=== PATIENT | female | born 1965 | race Caucasian/White ===

== ENCOUNTER 2023-04-01 17:21 | Emergency (ER) | payer OTHER, SELFPAY ==
--- NOTE | ~2023-04-01 | CT_ITS ---
EXAMINATION: CT brain wo con DATE: 04/01/2023 18:35 INDICATION: fall . TECHNIQUE: Computed tomography (CT) of the head was performed without intravenous contrast. The mA wa s adjusted according to patient size. Iterative reconstruction technique was employed. The dose-lengt h product was 605.33 mGy-cm. COMPARISON: None. FINDINGS: No acute intracranial hemorrhage or extra-axial fluid collection. No hydrocephalus, mass, or herniation. No acute ischemic infarct. Unremarkable dural venous sinus attenuation. No acute osseous abnormality. The aerated spaces are clear. IMPRESSION: No acute intracranial process. Reviewed, dictated and finalized at location K.
--- NOTE | ~2023-04-01 | XR_ITS ---
EXAM: XR shoulder LT min 2V DATE: 04/01/2023 18:30 HISTORY: pain, fall today landing on arm . COMPARISON: None available. FINDINGS: Normal mineralization. No fracture or dislocation. No lytic or blastic lesion. Joint space s are maintained. No erosion or periosteal change. Soft tissues within normal limits. IMPRESSION: No acute osseous finding in the left shoulder. Reviewed, dictated and finalized at location K.
[2023-04-01 17:27] VITALS: BP 162/74; PULSE 88; RESP 19; TEMP 36.8; O2SAT 100
--- NOTE | 2023-04-01 18:22 | ED.HEATRA ---
HPI - Head Injury General Chief complaint: Head Injury Stated complaint: head injury Time Seen by Provider: 04/01/23 17:47 History of Present Illness HPI Narrative: 57-year-old female reports for evaluation for head injury that occurred today. Patient states she was stepping onto her deck, lost her balance and fell, landing on her left side and hitting her head on the deck. She reports a laceration to her head, no LOC. She reported a headache earlier that has subsided after taking Tylenol. She denies neck pain, back pain that is unchanged from her baseline. She does report left shoulder pain that is worse with internal rotation. Patient remembers following and thinks she may have tripped on her dog but is unsure. She denies chest pain, dizziness, lightheadedness, shortness of breath, vision changes, focal numbness or weakness prior to fall. Denies vision changes, focal numbness or weakness after fall. States her last tetanus vaccine was 2 years ago. Related Data Allergies Allergy/AdvReac Type Severity Reaction Status Date / Time No Known Allergies Allergy Verified 04/01/23 17:44 Review of Systems Review of Systems: CONSTITUTIONAL: Denies fever, chills EYES: Denies visual changes, redness, or discharge. ENT: Denies rhinorrhea, congestion, sore throat, or otalgia. CARDIOVASCULAR: Denies chest pain, palpitations, or edema. RESPIRATORY: Denies cough or dyspnea. GASTROINTESTINAL: Denies abdominal pain, nausea, vomiting, or diarrhea. GENITOURINARY: Denies dysuria or hematuria. SKIN: Denies rash or itching. MUSCULOSKELETAL: Denies back pain, joint pain, or myalgia. NEUROLOGIC: See HPI PSYCHIATRIC: Denies anxiety or depression. [facility] Past Medical History Medical History Dysuria Exam Narrative: GENERAL: Well-appearing, in no acute distress. HEAD: Normocephalic EYES: PERRLA, EOMI. No nystagmus ENT: Nares clear. Mucous membranes moist. Oropharynx without tonsillar hypertrophy exudate or other lesions. Bilateral TMs are santizo nonbulging. No marvin sign. NECK: Supple. No cervical spinous tenderness, step-offs or deformities. BACK: No midline thoracic or lumbar spinous tenderness, step-offs or deformities. Tenderness to the left thoracic paraspinous muscles extending over the scapula. CHEST: No respiratory distress. Clear to auscultation, no adventitious breath sounds. No tenderness to chest wall. HEART: Regular rate and rhythm. No murmur heard. Normal peripheral pulses. ABDOMEN: Soft, nontender, normal active bowel sounds. EXTREMITIES: Normal range of motion. No edema. SKIN: 1cm superficial laceration to the right vertex of the scalp. Pain controlled. No deep tissues visualized, no foreign bodies. NEURO: No focal deficits. Alert and oriented x3. Cranial nerves II through XII intact. Strength 5/5 in BUE and BLE. Sensation intact throughout. Ambulatory w/o difficulty PSYCH: Normal mood and affect. Course Vital Signs Vital signs: Vital Signs Temperature 98.2 F 04/01/23 17:27 Pulse Rate 88 04/01/23 17:27 Respiratory Rate 19 04/01/23 17:27 Blood Pressure 162/74 H 04/01/23 17:27 Pulse Oximetry 100 04/01/23 17:27 Oxygen Delivery Room Air 04/01/23 17:27 Temperature 98.2 F 04/01/23 17:27 Pulse Rate 88 04/01/23 17:27 Respiratory Rate 19 04/01/23 17:27 Blood Pressure 162/74 H 04/01/23 17:27 Pulse Oximetry 100 04/01/23 17:27 Oxygen Delivery Room Air 04/01/23 17:27 Procedures Laceration Laceration 1: Date: 04/01/23 Time: 19:23 Site: scalp Size (cm): 1 Description: linear Depth: simple, single layer Pre-repair: wound explored and irrigated ====== Skin Level ====== Skin layer closed with: ruth Number of sutures: 1 ====== Subcutaneous Layer ====== ====== Muscle Layer ====== ====== Tendon Layer ====== MDM - Head Injury M
--- NOTE | 2023-04-01 19:00 | PC.NURSE ---
This RN assumed care of patient.
== END 2023-04-01 19:41 | disposition home or self-care (01) ==
PROVIDERS: Emergency Provider Physician Assistant
DX: S46.912A Strain of unspecified muscle, fascia and tendon at shoulder and upper arm level, left arm, initial encounter (principal); S01.01XA Laceration without foreign body of scalp, initial encounter; W18.39XA Other fall on same level, initial encounter
CPT/HCPCS: 12001; 70450; 73030; 99284

== ENCOUNTER 2023-10-08 13:36 | Emergency (ER) | payer OTHER, SELFPAY ==
--- NOTE | 2023-10-08 13:48 | ED.GENADULT ---
HPI - General Adult General Chief complaint: Eye Problems Stated complaint: Eye Problem Source: patient, RN notes reviewed and old records reviewed Mode of arrival: ambulatory Limitations: no limitations History of Present Illness HPI narrative: 4-year-old [facility] with complaints redness rash to face and neck this started this a.m.. Patient states has been treating lyse the last 2 nights then woke this a.m. with the redness patient states rash is painful. Patient states woke up with eye swollen shut today. Patient concerned may have conjunctivitis. Related Data Home Medications Medication Instructions Recorded Confirmed lisinopril 20 1 tablet PO 06/24/23 mg-hydrochlorothiazide 25 mg tablet Allergies Allergy/AdvReac Type Severity Reaction Status Date / Time No Known Allergies Allergy Verified 06/24/23 08:49 Review of Systems Constitutional: Constitutional: Reports no additional constitutional complaints, Denies body ache(s), Denies chills, Denies fatigue, Denies fever(s) and Denies headache(s) Eyes: Eyes: Reports no additional eye complaints and Denies blurry vision ENT: Reports system reviewed and no additional complaints, except as documented, Denies vertigo, Denies dizziness, Denies ear discharge, Denies otalgia, Denies facial pain, Denies headache(s), Denies nasal congestion, Denies nasal discharge, Denies sinus pain, Denies sinus pressure and Denies sore throat Cardiovascular: Cardiovascular: Reports no additional cardiovascular complaints, Denies chest pain, Denies chest pain at rest, Denies rapid heart rate and Denies dyspnea Respiratory: Respiratory: Reports no additional respiratory complaints, Denies chest congestion, Denies cough, Denies pain on inspiration, Denies pain with cough and Denies dyspnea Gastrointestinal: Gastrointestinal: Denies abdominal pain, Denies diarrhea, Denies nausea and Denies vomiting Integumentary/Breasts: Skin/Breast: Reports swelling, Reports change in pigmentation, Reports erythema and Reports rash Neurologic: Reports system reviewed and no additional complaints, except as documented, Denies vertigo, Denies dizziness and Denies headache(s) Endocrine: Endocrine: Denies fatigue [facility] Past Medical History Medical History Anxiety Depression Dysuria Heart palpitations Hypertension Surgical History Surgical History H/O hernia repair H/O: hysterectomy History of delivery History of tonsillectomy Family History Family History Mother Hypertension Colon polyp Father Hypertension Aortic aneurysm Social History Social History Smoking status: Never smoker Alcohol intake: current Alcohol use details: rarely Substance use: never Lack of Transportation: No Lack of Food: Never True Current Housing: I Have Housing Concerned About Future Housing: No Difficulty Paying Gas/Electric Bills: No Difficulty Paying for Meds: No Currently Unemployed: No Education: Master's Degree or Higher Difficulty w/ Childcare or Family Care: No Living arrangements: with family Occupation/Education: occupation Gender identity (if verbalized by the patient): Female Comments At the time of my signature, I reviewed and agree with the nursing past medical, surgical, social, and family history. There is no relevant family history pertinent to the patient complaint. Exam Const: General: cooperative, healthy appearing, no acute distress and well nourished Nutritional Appearance: well nourished Orientation/consciousness: patient oriented x3 Limitations: no limitations HENMT: Head: normal to inspection and normocephalic Ears: external ears normal, TM's normal bilaterally, mastoids normal and Abnormal EAC pr
[2023-10-08 13:52] VITALS: BP 181/89; PULSE 70; RESP 16; TEMP 36.9; O2SAT 100
== END 2023-10-08 14:02 | disposition home or self-care (01) ==
PROVIDERS: Emergency Provider Registered Nurse
DX: L23.5 Allergic contact dermatitis due to other chemical products (principal); H10.33 Unspecified acute conjunctivitis, bilateral; I10 Essential (primary) hypertension
CPT/HCPCS: 99213; G0463

== ENCOUNTER 2023-10-28 09:02 | Outpatient (CLI) | payer OTHER, SELFPAY ==
--- NOTE | 2023-11-18 21:05 | WPDHOMESLEEP ---
Sleep Study - Home Unattended Date of Study: 10/28/23 Ordering Provider: Thao Franklin APRN Interpreting Provider: Nan Blanchard MD Home Sleep Study Type: Maty ESPARZA Height: 1.6 m Weight: 97.522 kg Body Mass Index: 38.0 Neck Circumference (inches): 14 Britt: 17 Reason for Sleep Study Hypersomnolence Sleep History Sarah Hoffman is a 58-year-old female with hypertension, anxiety who has complaints of excess dream daytime somnolence, snoring and headaches. She does not feel rested after full night of sleep even if she gets 8 hours. She lives a healthy lifestyle, stays active, avoids screen time before bed and avoid caffeine in the afternoon. The patient did not complete a sleep questionnaire there for details about sleep are not available to review. [facility] Past Medical History Medical History Anxiety Daytime somnolence DDD (degenerative disc disease) Depression Dysuria Heart palpitations Hypertension Mild HTN Surgical History Surgical History H/O hernia repair H/O: hysterectomy History of delivery History of tonsillectomy Family History Family History Mother Hypertension Colon polyp Father Hypertension Aortic aneurysm Social History Social History Smoking status: Never smoker Alcohol intake: current Alcohol use details: VERY RARE Substance use: never Substance use type: does not use Lack of Transportation: No Lack of Food: Never True Current Housing: I Have Housing Concerned About Future Housing: No Difficulty Paying Gas/Electric Bills: No Difficulty Paying for Meds: No Currently Unemployed: No Education: Master's Degree or Higher Difficulty w/ Childcare or Family Care: No Living arrangements: with family Occupation/Education: occupation Gender identity (if verbalized by the patient): Female Spiritual care concerns: No Medications Home Medications Medication Instructions Recorded Confirmed Type lisinopril 20 1 tablet PO DAILY 06/24/23 11/05/23 History mg-hydrochlorothiazide 25 mg tablet duloxetine 30 mg capsule,delayed 30 mg PO DAILY #90 caps 07/21/23 11/05/23 Rx release duloxetine 60 mg capsule,delayed 60 mg PO DAILY #90 caps 07/21/23 11/05/23 Rx release hydrocodone 5 mg-acetaminophen 325 1 tablet PO Q6H PRN pain #20 tabs 11/05/23 Rx mg tablet Sleep Procedure The sleep study was completed using [employer] a technically adequate device with seven channels: peripheral arterial tone, actigraphy, body position, snore, respiratory movement, pulse oximetry, sleep staging, and heart rate. Prior to using the device, the patient received verbal and written instructions for its application and was provided with the help desk phone number for additional telephonic instruction with 24-hour availability of qualified personnel to answer questions. Sleep Architecture The total recording time is 7 hour 6 minutes. The total sleep time is 6 hours 31 minutes. Sleep latency is 19 minutes. REM latency is 59 minutes, short, suggestive of hypersomnolence. The patient had 3 episodes of waking. Sleep architecture shows 16.6% deep sleep, 51.2% light sleep, and 32.2% stage REM. The patient spent 130.5 minutes, 33.3% of total sleep time in the supine position. Respiratory Analysis The overall AHI is[ ]. The central AHI is[]. The REM AHI was[]. There was no evidence of Best-Pham respirations. Oximetry Data The oxygen desaturation index is[]. The mean saturation is[]%, the lowest saturation is[]%, and the patient spent[] minutes,[]% of the sleep time, below 88%. Snoring Profile Snoring was present, average intensity 41 dB. The patient snored above 45 dB for 21.1 minutes, 5.4% of the sleep time. Cardiac Profile T
[2023-11-18 21:10] VITALS: BMI 38.0
== END 2023-11-01 07:30 | disposition home or self-care (01) ==
LOC: ANHCSM 09:11
PROVIDERS: Visit Provider Nurse Practitioner Family
DX: G47.00 Insomnia, unspecified (principal); R53.83 Other fatigue; G47.33 Obstructive sleep apnea (adult) (pediatric)
CPT/HCPCS: 95800

== ENCOUNTER 2023-11-05 01:19 | Day surgery (SDC) | payer OTHER, SELFPAY ==
--- NOTE | 2023-10-31 09:28 | PM.IMHP ---
H&P: HPI History of Present Illness Date/Time: 10/31/23 09:28 Chief Complaint: POP/ANDRADE Narrative: bothersome cystocele and ANDRADE Review of Systems Review of Systems: All systems reviewed & are unremarkable except as noted in HPI and below [facility] Past Medical History Medical History Anxiety Daytime somnolence Depression Dysuria Heart palpitations Hypertension Mild HTN Surgical History Surgical History H/O hernia repair H/O: hysterectomy History of delivery History of tonsillectomy Family History Family History Mother Hypertension Colon polyp Father Hypertension Aortic aneurysm Social History Social History Smoking status: Never smoker Alcohol intake: current Alcohol use details: rarely Substance use: never Lack of Transportation: No Lack of Food: Never True Current Housing: I Have Housing Concerned About Future Housing: No Difficulty Paying Gas/Electric Bills: No Difficulty Paying for Meds: No Currently Unemployed: No Education: Master's Degree or Higher Difficulty w/ Childcare or Family Care: No Living arrangements: with family Occupation/Education: occupation Gender identity (if verbalized by the patient): Female Meds Home Medications and Allergies Home Medications Medication Instructions Recorded Confirmed Type lisinopril 20 1 tablet PO 06/24/23 History mg-hydrochlorothiazide 25 mg tablet duloxetine 30 mg capsule,delayed 30 mg PO DAILY #90 caps 07/21/23 Rx release duloxetine 60 mg capsule,delayed 60 mg PO DAILY #90 caps 07/21/23 Rx release phentermine 37.5 mg capsule 37.5 mg PO DAILY #30 caps 07/21/23 Rx ofloxacin 0.3 % eye drops 1 drp EACH EYE QID 7 days #5 mL 10/08/23 Rx prednisone 20 mg tablet 20 mg PO BID 5 days #10 tabs 10/08/23 Rx Allergies Allergy/AdvReac Type Severity Reaction Status Date / Time No Known Allergies Allergy Verified 06/24/23 08:49 Exam Narrative: NAD cystocele to introitus + urethral mobility Assessment and Plan Assessment and plan (1) Cystocele with prolapse: Code(s): N81.4 - Uterovaginal prolapse, unspecified Status: Acute (2) ANDRADE (stress urinary incontinence, female): Code(s): N39.3 - Stress incontinence (female) (male) Status: Acute Plan cystocele repair and sling. riks, benifits and alternative outlines in office chart
[2023-11-02 14:51] VITALS: BMI 38.0
--- NOTE | 2023-11-02 14:55 | PC.NURSE ---
Report to the Outpatient Waiting Room, entrance under the green pavilion located off [facility], at time 6:15 on date 11/05/23. Planned Procedure Time: 8:15. Time changes happen often and if your time is changed the preop area will call you the afternoon before. - You and your visitor will be asked to self-screen and do not enter if you have any COVID symptoms. - A mask is optional within the hospital at this time. Patients may have clear liquids (water, carbonated beverages, clear teas, apple juice) until 3 hours prior to surgery (5:15) with a maximum of 20 ounces. - No food from midnight until time of surgery Take the following medications with a SIP of water the morning of surgery: CYMBALTA DO NOT STOP ANY OF YOUR OTHER PRESCRIPTION MEDICATIONS PRIOR TO SURGERY ?EXCEPT THE FOLLOWING Medications to discontinue per physician: N/A Date to take last dose: N/A Please no make-up, nail peruvian, hairspray, perfume, deodorant, or body powder the day of surgery. No jewelry (including any body piercings) or valuables the day of surgery, leave them at home. Please take a shower or bath the night before, or the morning of, surgery with an antibacterial soap. Wear comfortable, loose fitting clothing. - Jewelry must be removed prior to entering the operating room. Rings and piercings that are not removed may be cut off. - The hospital will not accept responsibility for valuables. - Please leave all valuables, including medications, at home the day of surgery. If you are going home after surgery, a licensed truck driver heavy must drive you home. - NO public transportation without another adult if you receive anesthesia. - We recommend that an adult stay with you for 24 hours following discharge. - We also recommend that you do not drive, make important decision, drink alcoholic beverages, or take any drugs that were not prescribed by your health care provider for at least 24 hours after your discharge time. Follow any additional instructions given to you from your surgeon. If you or anyone in your household have experienced Covid symptoms in the past week, please notify your surgeon or the nurse liaison at the phone number below for possible testing. Telephone instructions given to PT - ELLE GHOTRA and asked if any additional questions and then verbalized understanding. Patient advised to call surgeon office or pre surgery nurse liaison [phone] if any additional questions.
[2023-11-05] VITALS (8 sets, daily range): BP systolic 102–151; BP diastolic 64–93; PULSE 64–89; RESP 11–18; TEMP 36.4–36.8; O2SAT 96–100
--- NOTE | 2023-11-05 06:04 | ECG_ITS ---
Measurements Intervals [place] Rate: 77 P: 19 NH: 137 QRS: -57 QRSD: 91 T: 58 QT: 405 QTc: 460 Interpretive Statements SINUS RHYTHM LEFT ANTERIOR FASCICULAR BLOCK [QRS AXIS <= -45, QR IN I, RS IN II] ABNORMAL ECG NO PREVIOUS ECG AVAILABLE FOR COMPARISON Electronically Signed On 11-05-2023 12:39:42 MOTIVATIONAL SPEAKER by Hola Guzman M.D.
--- NOTE | 2023-11-05 07:14 | WPDHPUPDATE1 ---
History and Physical Update Update Date/Time: 11/05/23 07:14 History and Physical has been reviewed, including an updated exam of the patient. There are NO changes in the patient's condition. Risks, benefits, and alternatives have been discussed and questions answered. Patient agrees to proceed with procedure.
[2023-11-05 07:18] LABS: Anion Gap 5 mmol/L (8-16); Blood Urea Nitrogen 11 mg/dL (7-17); Calcium 9.2 mg/dL (8.4-10.2); Carbon Dioxide 29 mmol/L (22-30); Chloride 104 mmol/L (98-107); Estimated CRCL calculation 72 ml/min; Estimated Glomerular Filt Rate > 60; Glucose 98 mg/dL (65-110); Potassium 3.9 mmol/L (3.4-5.0); Sodium 138 mmol/L (137-145)
[2023-11-05] MEDS: LACTATED RINGERS 1,000 ML 30 ML IV CONT ×2 (07:32→10:07)
--- NOTE | 2023-11-05 08:06 | WPDANESEPPF ---
Anes - Initial Pre Proc Eval Procedure: Operation Date: 11/05/23 08:15 Proposed Procedures p Cystocele Repair, Urethral Sling - Mayank Lynch MD Date/Time: 11/05/23 08:06 Surgeon: Mayank Lynch MD Pre Op Diagnosis: cytocele, stress incontinence Patient Data Age: 58 Gender: F Height: 1.6 m Weight: 99 kg Last Vital Signs Temp 36.8 C 11/05/23 07:00 Pulse 83 11/05/23 07:00 Resp 18 11/05/23 07:00 BP 151/66 H 11/05/23 07:00 Pulse Ox 99 11/05/23 07:00 O2 Del Method Room Air 11/05/23 07:00 Allergies Allergy/AdvReac Type Severity Reaction Status Date / Time No Known Allergies Allergy Verified 11/02/23 14:50 Home Medications Medication Instructions Recorded Confirmed Type lisinopril 20 1 tablet PO DAILY 06/24/23 11/05/23 History mg-hydrochlorothiazide 25 mg tablet duloxetine 30 mg capsule,delayed 30 mg PO DAILY #90 caps 07/21/23 11/05/23 Rx release duloxetine 60 mg capsule,delayed 60 mg PO DAILY #90 caps 07/21/23 11/05/23 Rx release Laboratory Tests 11/05/23 06:52 Sodium 138 mmol/L (137-145) Potassium 3.9 mmol/L (3.4-5.0) Chloride 104 mmol/L (98-107) Carbon Dioxide 29 mmol/L (22-30) Anion Gap 5 L mmol/L (8-16) BUN 11 mg/dL (7-17) Creatinine 0.80 mg/dL (0.7-1.0) Estim Creat Clear Calc 72 ml/min Estimated GFR > 60 (59 - ) Glucose 98 mg/dL (65-110) Calcium 9.2 mg/dL (8.4-10.2) Patient hx anesthesia problems: post op nausea/vomiting Family hx anesthesia problems: none Results Review: All pre-operative results and documents have been reviewed as part of the pre-operative evaluation. [facility] Past Medical History Medical History Anxiety Daytime somnolence DDD (degenerative disc disease) Depression Dysuria Heart palpitations Hypertension Mild HTN Surgical History Surgical History H/O hernia repair H/O: hysterectomy History of delivery History of tonsillectomy Family History Family History Mother Hypertension Colon polyp Father Hypertension Aortic aneurysm Social History Social History Smoking status: Never smoker Alcohol intake: current Alcohol use details: VERY RARE Substance use: never Substance use type: does not use Lack of Transportation: No Lack of Food: Never True Current Housing: I Have Housing Concerned About Future Housing: No Difficulty Paying Gas/Electric Bills: No Difficulty Paying for Meds: No Currently Unemployed: No Education: Master's Degree or Higher Difficulty w/ Childcare or Family Care: No Living arrangements: with family Occupation/Education: occupation Gender identity (if verbalized by the patient): Female Spiritual care concerns: No Anes - Eval Final PreProcedure Day of Procedure 11/05/23 08:06 Patient weight: obese Heart: regular rate and rhythm Lungs: clear to auscultation Airway: Mallampati scale class III Neurological: alert and oriented Last oral intake: >/= 8 hours ASA classification: III Emergent: no Anesthetic plan: proceed Anesthesia type and monitoring: general LMA and standard monitoring Results Review: All pre-operative results and documents have been reviewed as part of the pre-operative evaluation. Informed Consent: The patient's anesthetic plan and its attendant risks and benefits were discussed with the patient/family/POA. Questions were solicited and answers provided to the satisfaction of the patient/family/POA.
[2023-11-05] MEDS: ceFAZolin 2 GM/D5W 50 ML 2 GM/50 ML BAG IVPB (08:26)
[2023-11-05] MEDS: BUPIVACAINE/EPINEPHRINE 0.5% 10 ML VIAL 30 ML INFILTRATE (08:44)
--- NOTE | 2023-11-05 09:19 | W.PM.PROC2 ---
Procedure Note - Detailed Date of Procedure 11/05/23 Pre-op Diagnosis cytocele, stress incontinence Post-op Diagnosis Same Procedure Performed Cystocele repair mid urethral sling cystoscopy Surgeon Mayank Lynch MD Anesthesia General and Local Indications This is a female with confirm stress urinary incontinence as well as pelvic organ prolapse/cystocele. She desires surgical correction. She understands the risks of bleeding, infection, injury to the urinary tract, vaginal mesh extrusion, urinary tract mesh erosion, obstructive voiding requiring a secondary procedure, hip and leg pain, dyspareunia, inability to improve overactive bladder symptoms. She agrees to proceed. She also understands risks of damage to the bladder ureters. The risks of damage to the urethra. The risks of persistent or recurrent prolapse or incontinence. She agrees to proceed Description of Procedure She was correctly identified. Informed consent obtained. She was brought the operating room. She was given appropriate anesthesia. She was given appropriate perioperative antibiotics. A time-out performed. Blanco catheter was placed. A Ferriday retractor was placed. She had a cystocele to the level of the introitus. She had a small degree of rectocele as well. She had atrophic vaginal changes much worse than I would expect for her age. I grasped the cystocele with Allis clamps. I infiltrated subcutaneous tissues with local mixed with epinephrine. I made a midline vaginal incision. I dissected out laterally and back to the apex taking great care not to injure the bladder or vaginal wall. I then performed a plication cystocele repair. I used interrupted 0 Vicryl suture to reduce the cystocele. I trimmed excess vaginal mucosa. I closed the vaginal mucosa running 2-0 Vicryl suture. There was excellent reduction of the cystocele. She had a small amount of rectocele which I elected not to repair as it is asymptomatic. I marked out the site of the inner thigh incisions. I anesthetized the skin and made those incisions. I anesthetized the anterior vaginal wall over the mid urethra. I made a 1 cm incision. I dissected out laterally taking great care not to injure the refilled vaginal wall. I passed the helical trocars. First on the left. Then on the right. I did this from the thigh incision towards the vaginal incision. The sling was connected to the trocars and brought out through the thigh incision. I tensioned the sling appropriately. I cut and the plastic sheaths. I then closed the incision with 2 0 Vicryl. On cystoscopy there is no tumors or surgical artifact. There was no surgical artifact in the urethra. Bilateral ureteral patency was documented by CT excretion of clear yellow urine or passing guidewires up both ureters. I cut the excess sling material. Close incisions with glue. She was awakened and transferred to the PACU in stable condition. Implants Urethral sling Drains No Packing No Pathology None sent Complications No immediate complications Condition Stable Disposition PACU
== END 2023-11-05 11:28 | disposition home or self-care (01) ==
PROVIDERS: Anesthesiology; Visit Provider Urology
PROC: (CPT 57240; principal; 2023-11-05 08:15)
DX: N39.3 Stress incontinence (female) (male) (principal); N81.10 Cystocele, unspecified; N81.6 Rectocele; I10 Essential (primary) hypertension; F41.9 Anxiety disorder, unspecified; F32.A Depression, unspecified; E66.9 Obesity, unspecified; Z68.38 Body mass index [BMI] 38.0-38.9, adult
CPT/HCPCS: 57240; 36415; 80048; 93005; A9270; C1758; C1769; C1771; J0690; J1100; J2250; J2405; J2704; J3010; J7030; J7120

== ENCOUNTER 2023-11-25 06:37 | Outpatient (CLI) | payer OTHER, SELFPAY ==
--- NOTE | ~2023-11-25 | CT_ITS ---
EXAMINATION: CT abdomen pelvis wo/w con DATE: 11/25/2023 07:31 INDICATION: Right flank pain TECHNIQUE: Computed tomography (CT) of the abdomen and pelvis was performed without and subsequently with 130 CC Omnipaque 350 intravenous contrast. Automated exposure control and iterative reconstructi on technique were employed. Exam dose: 2597.39 mGy-cm total exam DLP. COMPARISON: None. FINDINGS: 5 mm soft tissue opacity in the lateral lower aspect of the left lower lobe. The included l ower lung zones clear of infiltrate or consolidation. Normal heart size. No pericardial or pleural effusion. Approximately 1 cm probable cyst of the inferior aspect of the right hepatic lobe. 7.5 mm cyst in the lateral segment left hepatic lobe. The liver, gallbladder, bile ducts, pancreas and pancreatic duct are otherwise unremarkable with the exception of an approximately 5.5 mm calcification of the body of the pancreas. Normal splenic size. Normal adrenal glands. Scattered bilateral small renal cysts. No urinary tract or hydroureteronephrosis. Normal appendix. No bowel obstruction, bowel wall thickening, pneumatosis or intraperitoneal free air . There is mild atherosclerotic calcification but normal caliber of the abdominal aorta and iliac arter ies. No intraperitoneal or retroperitoneal or pelvic mass lesion or adenopathy or ascites. Small fat-containing umbilical hernia. The thoracic spine and degenerative spurring. Right L5-S1 apophyseal joint effusion. Prominent degenerative change of the left L5-S1 apophyseal malena nt. Grade 1 anterolisthesis at L5-S1. No suspicious osteolytic or osteoblastic lesions are noted. IMPRESSION: Scattered very small renal cysts No urinary tract calculus or hydroureteronephrosis 1 cm and 7.5 mm probable hepatic cysts 5.5 mm calcification of the body of the pancreas Normal appendix Nonspecific 5 mm soft tissue opacity of the lateral lower aspect of the left lower lobe Reviewed, dictated and finalized at [facility]. Reviewed, dictated and finalized at [facility]. IMPRESSION: Scattered very small renal cysts No urinary tract calculus or hydroureteronephrosis 1 cm and 7.5 mm probable hepatic cysts 5.5 mm calcification of the body of the pancreas Normal appendix Nonspecific 5 mm soft tissue opacity of the lateral lower aspect of the left lo wer lobe
== END 2023-11-25 06:38 | disposition home or self-care (01) ==
PROVIDERS: Visit Provider Nurse Practitioner
DX: R10.9 Unspecified abdominal pain (principal); N28.1 Cyst of kidney, acquired
CPT/HCPCS: 74178; Q9967